=== PATIENT | male | born 1980 | race Caucasian/White ===

== ENCOUNTER 2016-08-16 05:33 | Emergency (ER) | payer MEDICAID ==
[~2016-08-16] VITALS: Ht 175.3 cm; Wt 88.0 kg
[2016-08-16 05:34] VITALS: BP 122/62; PULSE 84; RESP 16; TEMP 97.7; O2SAT 99
[2016-08-16] MEDS ORDERED: AMOX500T PO (05:49)
--- NOTE | 2016-08-16 05:55 | PD ---
HPI Chief Complaint: ENT Complaint Time Seen by Provider: 05:49 Travel History International Travel<30 days: No Contact w/Intl Traveler<30days: No Traveled to known affect area: No History of Present Illness HPI 35-year-old white male presents to the emergency department with a one-to two- day history of sore throat, subjective fever, congestion and cough. He denies any shortness of breath or wheezing. No nausea vomiting. No bowel pain or diarrhea. PFSH Past Medical History Medical History: Denies Significant Hx Tetanus Vaccination: < 5 Years Past Surgical History Surgical History: No Previous Surgery Social History Alcohol Use: No Tobacco Use: Yes Allergies-Medications (Allergen,Severity, Reaction): Coded Allergies: No Known Allergies (Unverified , 08/16/16) Reported Meds & Prescriptions Reported Meds & Active Scripts Active Amoxicillin 500 Mg Tab 1,000 Mg PO BID Review of Systems Except as stated in HPI: all other systems reviewed are Neg Physical Exam Narrative GENERAL: Well-developed, well-nourished in no acute distress. Nontoxic appearing. HEAD: Normocephalic, atraumatic. EYES: Pupils equal round and reactive. Extraocular motions intact. No scleral icterus. No injection or drainage. ENT: TMs clear without erythema. The external auditory canals clear. Nose: clear . Posterior pharynx is erythematous and moist. Positive tonsillar edema but no. Uvula midline. Airway patent. NECK: Trachea midline.Supple, nontender, moves head freely. No central bony tenderness or spasm. CARDIOVASCULAR: Regular rate and rhythm without murmurs, gallops, or rubs. RESPIRATORY: Clear to auscultation. Breath sounds equal bilaterally. No wheezes , rales, or rhonchi. GASTROINTESTINAL: Abdomen soft, non-tender, nondistended. No hepato-splenomegaly , or palpable masses. No guarding. EXTREMITIES: No clubbing, cyanosis, or edema. No joint tenderness, effusion, or edema noted. BACK: Nontender without deformity or crepitance. No flank tenderness. Data Data Last Documented VS Vital Signs Date Time Temp Pulse Resp B/P Pulse Ox O2 Delivery O2 Flow Rate FiO2 08/16/16 05:34 97.7 84 16 122/62 99 Orders Group A Rapid Strep Screen (08/16/16 05:39) Amoxicillin (Trimox) (08/16/16 06:00) Ibuprofen (Motrin) (08/16/16 06:00) MDM Medical Decision Making Medical Screen Exam Complete: Yes Emergency Medical Condition: Yes Medical Record Reviewed: Yes Differential Diagnosis MDM: High Differential diagnoses: Strep throat, viral pharyngitis, mono, peritonsillar abscess, retropharyngeal abscess, Winston's angina Narrative Course Patient's exam is consistent with strep throat. Patient given amoxicillin 500 mg. Diagnosis Primary Impression: Acute pharyngitis Qualified Code: J02.9 - Acute pharyngitis, unspecified etiology Patient Instructions: General Instructions Departure Forms: Tests/Procedures, Work Release Special Instructions: No work 2-3 days. Additional Instructions: Rest. Force fluids. Saltwater gargles. Tylenol and Advil. Chloraseptic [place] Cepastat lozenge. Amoxicillin. Follow-up with a primary care doctor in one week. Return to the ER if any problems. Med/Other Pt SpecificInfo: Prescription(s) given Scripts Amoxicillin 500 Mg Tab1,000 Mg PO BID #40 TAB Prov:Dorita Bryan MD 08/16/16 Disposition: 01 DISCHARGE HOME Condition: Stable Ryan Boucher Aug 16, 2016 05:55
[2016-08-16] MEDS ORDERED: AMOXICILLIN (TRIHYDRATE) 500 MG CAP PO ONE (06:00)
[2016-08-16] MEDS ORDERED: IBUPROFEN 600 MG TAB PO ONE (06:00)
== END 2016-08-16 06:58 | disposition home or self-care (01) ==
LOC: NEPB 05:33
DX: J02.9 Acute pharyngitis, unspecified (principal); R05 Cough; Z72.0 Tobacco use
CPT/HCPCS: 87081; 87880; 99283

== ENCOUNTER 2017-03-20 23:11 | Emergency (ER) | payer MEDICAID ==
[~2017-03-20] VITALS: Ht 175.3 cm; Wt 93.0 kg
[~2017-03-20 23:11] MED LIST: AMOX500T PO
[2017-03-20 23:15] VITALS: BP 121/74; PULSE 96; RESP 16; TEMP 98.1; O2SAT 96
--- NOTE | 2017-03-21 00:10 | PD ---
HPI Chief Complaint: Skin Problem Time Seen by Provider: 00:00 Travel History International Travel<30 days: No Contact w/Intl Traveler<30days: No Traveled to known affect area: No History of Present Illness HPI This is a 36-year-old male who presents with multiple somatic complaints. Initially the chief complaint was an area of skin redness on the right hand which she first noticed today. He has been picking at it all day because it is itchy. During the course of the examination the patient also endorses intermittent chest pain, shortness of breath for 6 months as well as "hives" for 6 months. He describes the hives is raised red areas on his skin which come and go. He is not currently experiencing this. He reports that it happens about twice a month. He also reports fatigue. He has no significant past medical history. Denies recent travel, recent surgery, history of DVT or PE. Endorses tobacco use. No other complaints. PFSH Past Medical History Medical History: Denies Significant Hx Diminished Hearing: No Tetanus Vaccination: < 5 Years Influenza Vaccination: No Past Surgical History Surgical History: No Previous Surgery Social History Alcohol Use: No Tobacco Use: Yes Substance Use: No Allergies-Medications (Allergen,Severity, Reaction): Coded Allergies: No Known Allergies (Unverified , 03/21/17) Reported Meds & Prescriptions Reported Meds & Active Scripts Active No Active Prescriptions or Reported Medications Review of Systems Except as stated in HPI: all other systems reviewed are Neg Physical Exam Narrative GENERAL: Well-developed well-nourished male in no acute distress SKIN: Warm and dry. There is a small Area of ecchymosis to the dorsal right hand interdigital webspace between the first and second digits. There is no generalized rash. HEAD: Atraumatic. Normocephalic. EYES: Pupils equal and round. No scleral icterus. No injection or drainage. ENT: No nasal bleeding or discharge. Mucous membranes pink and moist. NECK: Trachea midline. No JVD. CARDIOVASCULAR: Regular rate and rhythm. No murmur appreciated. RESPIRATORY: No accessory muscle use. Clear to auscultation. Breath sounds equal bilaterally. GASTROINTESTINAL: Abdomen soft, non-tender, nondistended. Hepatic and splenic margins not palpable. MUSCULOSKELETAL: No obvious deformities. No clubbing. No cyanosis. No edema. NEUROLOGICAL: Awake and alert. No obvious cranial nerve deficits. Motor grossly within normal limits. Normal speech. Data Data Last Documented VS Vital Signs Date Time Temp Pulse Resp B/P (MAP) Pulse Ox O2 Delivery O2 Flow Rate FiO2 03/20/17 23:15 98.1 96 16 121/74 (90) 96 Room Air Orders Orders Electrocardiogram (03/21/17 00:03) Ckmb (Isoenzyme) Profile (03/21/17 00:03) Complete Blood Count With Diff (03/21/17 00:03) Comprehensive Metabolic Panel (03/21/17 00:03) D-Dimer (03/21/17 00:03) Troponin I (03/21/17 00:03) Chest, Single Ap (03/21/17 00:03) Iv Access Insert/Monitor (03/21/17 00:03) Ct Pulmonary Angiogram (03/21/17 00:57) CKMB (03/21/17 00:20) CKMB% (03/21/17 00:20) Iohexol 350 Inj (Omnipaque 350 Inj) (03/21/17 01:17) Labs Laboratory Tests Test 03/21/17 00:20 White Blood Count 8.0 TH/MM3 Red Blood Count 4.50 MIL/MM3 Hemoglobin 14.8 GM/DL Hematocrit 42.6 % Mean Corpuscular Volume 94.6 FL Mean Corpuscular Hemoglobin 33.0 PG Mean Corpuscular Hemoglobin Concent 34.8 % Red Cell Distribution Width 12.9 % Platelet Count 206 TH/MM3 Mean Platelet Volume 7.6 FL Neutrophils (%) (Auto) 57.0 % Lymphocytes (%) (Auto) 30.8 % Monocytes (%) (Auto) 8.6 % Eosinophils (%) (Auto) 3.3 % Basophils (%) (Auto) 0.3 % Neutrophils # (Auto) 4.5 TH/MM3 Lymphocytes # (Auto) 2.4 TH/MM3 Monocytes # (Auto) 0.7 TH/MM3 Eosinophils # (Auto) 0.3 TH/MM3 Basophils # (Auto) 0.0 TH/MM3 CBC Comment DIFF FINAL Differential Comment D-Dimer Quantitative (PE/DVT) 1.02 MG/L FEU Blood Urea Nitrogen 20 MG/DL Creatinine 1.40 MG/DL Random Glucose 119 MG/DL Total Protein 7.6 GM/DL Albumin 3.8 GM/DL Calcium Level 8.3 MG/DL Alkaline Phosphatase 115 U/L Aspartate Amino Transf (AST/SGOT) 166 U/L Alanine Aminotransferase (ALT/SGPT) 461 U/L Total Bilirubin 0.4 MG/DL Sodium Level 142 MEQ/L Potassium Level 4.0 MEQ/L Chloride Level 105 MEQ/L Carbon Dioxide Level 27.0 MEQ/L Anion Gap 10 MEQ/L Estimat Glomerular Filtration Rate 58 ML/MIN Total Creatine Kinase 111 U/L Creatine Kinase MB LESS THAN 0.5 NG/ML Troponin I LESS THAN 0.02 NG/ML MDM Medical Decision Making Medical Screen Exam Complete: Yes Emergency Medical Condition: Yes Medical Record Reviewed: Yes Interpretation(s) EKG normal sinus rhythm Differential Diagnosis Anxiety, allergic reaction, pulmonary embolism, acute coronary syndrome, pericarditis, myocarditis, pneumothorax, electrolyte abnormality Narrative Course 36-year-old male presents with an area of skin redness on the right hand which appears to be a small area of ecchymosis secondary to the patient's squeezing and poking at the area. There is no evidence of infectious process, no pain or erythema. During the course of the presentation the patient endorses intermittent hives for 6 months but none currently. He also endorses intermittent fatigue, chest pain or shortness of breath. The patient appears well. He is otherwise healthy 36-year-old male. The plan today would be for basic lab work, d-dimer, EKG, ECG monitoring and pulse oximetry and chest x-ray. Patient's lab work and imaging studies have been reviewed. His d-dimer is mildly elevated and a CT pulmonary angiogram was ordered and was negative. His BUN is 20, creatinine is 1.4, no baseline renal function testing on record. His AST is 166 and his ALT is 461. When discussing liver enzymes with the patient he does endorse a remote history of IV drug abuse and he reports that 1 year ago he developed jaundice after injecting fentanyl. Given his history it was discussed with the patient importance of outpatient hepatitis virus testing for which he verbalizes understanding and agreement. He is stable for discharge. Procedures EKG Prior to Arrival: Yes Diagnosis Primary Impression: Elevated liver enzymes Additional Impression: Ecchymosis Additional Instructions: AST 166, ALT 461 As discussed, your liver enzymes are mildly elevated. Follow-up with primary care physician for outpatient workup for hepatitis. Follow-up with an rampman for further evaluation of the intermittent hives. Any emergent medical conditions. Med/Other Pt SpecificInfo: No Change to Meds Scripts No Active Prescriptions or Reported Meds Disposition: 01 DISCHARGE HOME Condition: Stable Jair Harley Mar 21, 2017 00:10
--- NOTE | 2017-03-21 00:25 | RADRPT ---
EXAM DATE/TIME: 03/21/2017 00:02 [facility] COMPARISON: No previous studies available for comparison. INDICATIONS : Chest pain. MEDICAL HISTORY : None. SURGICAL HISTORY : None. ENCOUNTER: Initial ACUITY: 1 day PAIN SCORE: 3/10 LOCATION: chest Substernal. FINDINGS: Portable AP view of the chest demonstrates a normal-sized cardiac silhouette. No effusion, consolidat ion, or pneumothorax is visualized. The bones and soft tissues demonstrate no acute abnormality. CONCLUSION: No acute cardiopulmonary abnormality is identified. Kwame Alfredo MD on March 21, 2017 at 0:23 Board Certified Radiologist. This report was verified electronically.
[2017-03-21 00:51] LABS: AUTOMATED NEUTROPHIL # 4.5 TH/MM3 (1.8-7.7); BASOPHIL % 0.3 % (0.0-2.0); EOSINOPHIL # 0.3 TH/MM3 (0-0.4); EOSINOPHIL % 3.3 % (0.0-4.0); HEMATOCRIT 42.6 % (39.0-51.0); HEMO FLAGS DIFF FINAL; LYMPH % 30.8 % (9.0-44.0); LYMPHOCYTE # 2.4 TH/MM3 (1.0-4.8); MEAN CELL VOLUME 94.6 FL (80.0-100.0); MEAN CORPUSCULAR HGB CONC 34.8 % (32.0-36.0); MONO % 8.6 % (0.0-8.0); PLATELET COUNT 206 TH/MM3 (150-450); RED CELL DISTRIBUTION WIDTH 12.9 % (11.6-17.2)
[2017-03-21 00:59] LABS: ALKALINE PHOSPHATASE 115 U/L (45-117); ALT (GPT) 461 U/L (12-78); ANION GAP 10 MEQ/L (5-15); AST (GOT) 166 U/L (15-37); BLOOD UREA NITROGEN 20 MG/DL (7-18); CHLORIDE 105 MEQ/L (98-107); CREATINE KINASE 111 U/L (39-308); GLOMERULAR FILTRATION RATE 58 ML/MIN (>89); SODIUM (NA) 142 MEQ/L (136-145); TOTAL BILIRUBIN ADULT 0.4 MG/DL (0.2-1.0)
[2017-03-21 01:12] LABS: CKMB LESS THAN 0.5 NG/ML (0.5-3.6)
[2017-03-21] MEDS ORDERED: IOHEXOL 350 MG/ML 10 ML VIAL (for RAD DIAG) IVCONTRAST ONE (01:17)
--- NOTE | 2017-03-21 01:30 | RADRPT ---
EXAM DATE/TIME: 03/21/2017 01:14 [facility] COMPARISON: No previous studies available for comparison. INDICATIONS : Chest pain and short of breath, evaluate for pulmonary emoblism IV CONTRAST: 69 cc Omnipaque 350 (iohexol) IV RADIATION DOSE: 23.21 CTDIvol (mGy) MEDICAL HISTORY : None SURGICAL HISTORY : None. ENCOUNTER: Initial ACUITY: 4 - 6 months PAIN SCALE: 4/10 LOCATION: chest TECHNIQUE: Volumetric scanning of the chest was performed using a pulmonary embolism protocol MIP images were re constructed. Using automated exposure control and adjustment of the mA and/or kV according to patien t size, radiation dose was kept as low as reasonably achievable to obtain optimal diagnostic quality images. DICOM format image data is available electronically for review and comparison. Follow-up recommendations for detected pulmonary nodules are based at a minimum on nodule size and pa tient risk factors according to Fleischner Society Guidelines. FINDINGS: PULMONARY ARTERIES: No filling defects are seen in the pulmonary arteries through the segmental level. LUNGS: There is no consolidation or pneumothorax . No concerning pulmonary nodule is visualized. PLEURAE: There is no pleural thickening or pleural effusion. MEDIASTINUM: There is good visualization of the great vessels of the middle mediastinum. No evidence of mediastin al or hilar adenopathy/mass. MUSCULOSKELETAL: No acute abnormality. MISCELLANEOUS: The visualized upper abdominal organs demonstrate no acute abnormality. CONCLUSION: 1. No PE is identified. 2. Additionally, no acute finding is identified to explain the clinical symptoms. Kwame Alfredo MD on March 21, 2017 at 1:27 Board Certified Radiologist. This report was verified electronically.
--- NOTE | 2017-03-21 16:40 | EKG ---
Date Performed: 03/21/2017 Time Performed: 00:16:21 PTAGE: 36 years EKG: Sinus rhythm NORMAL ECG NO PREVIOUS TRACING DOCTOR: Donita Diaz Interpretating Date/Time 03/21/2017 16:37:59
== END 2017-03-21 02:17 | disposition home or self-care (01) ==
LOC: NEPD 23:11
DX: R74.8 Abnormal levels of other serum enzymes (principal); S60.221A Contusion of right hand, initial encounter; R53.83 Other fatigue; R06.02 Shortness of breath; R07.9 Chest pain, unspecified; Z72.0 Tobacco use; X58.XXXA Exposure to other specified factors, initial encounter
CPT/HCPCS: 71010; 71275; 80053; 82550; 82552; 84484; 85025; 85379; 93005; 99285; Q9967

== ENCOUNTER 2017-09-02 19:50 | Emergency (ER) | payer SELFPAY ==
[~2017-09-02] VITALS: Ht 176.5 cm; Wt 93.0 kg
[2017-09-02 19:50] VITALS: BP 130/73; PULSE 114; RESP 16; TEMP 98.5; O2SAT 96
[2017-09-02] MEDS ORDERED: METOCLOPRAMIDE HCL 10 MG/2 ML VIAL IV PUSH ONE (20:45)
[2017-09-02] MEDS ORDERED: SODIUM CHLOR 0.9% 1000 ML INJ 1,000 ML IV ONE (20:45)
--- NOTE | 2017-09-02 20:45 | PD ---
HPI Chief Complaint: GI Complaint Time Seen by Provider: 20:25 Travel History International Travel<30 days: No Contact w/Intl Traveler<30days: No Traveled to known affect area: No History of Present Illness HPI 36-year-old male presents emergency department complaining of 2 episodes of nonbloody nonbilious vomiting, preceded by nausea, 1 episode of nonbloody diarrhea and mild "stomach pain" since this morning after eating a 'cold cut sandwich from the [employer]". States that immediately after he ate the sandwich his appetite appetite decreased and he started developing his symptoms. Patient states he has felt feverish but has not actually checked his temperature. He denies alcohol use. States he does smoke. Denies illicit drug use or any other medications. Denies chronic medical issues. [facility] Past Medical History Medical History: Denies Significant Hx Diminished Hearing: No Past Surgical History Surgical History: No Previous Surgery Social History Alcohol Use: No Tobacco Use: Yes (1PPD) Substance Use: No Allergies-Medications (Allergen,Severity, Reaction): Coded Allergies: No Known Allergies (Unverified Adverse Reaction, Unknown, 09/02/17) Reported Meds & Prescriptions Reported Meds & Active Scripts Active No Active Prescriptions or Reported Medications Review of Systems Except as stated in HPI: all other systems reviewed are Neg Physical Exam Narrative GENERAL: Well-nourished no apparent distress, lying comfortable in bed SKIN: Focused skin assessment warm/dry. HEAD: Atraumatic. Normocephalic. EYES: Pupils equal and round. No scleral icterus. No injection or drainage. ENT: No nasal bleeding or discharge. Mucous membranes pink and moist. NECK: Trachea midline. No JVD. CARDIOVASCULAR: Regular rate and rhythm. No murmur appreciated. RESPIRATORY: No accessory muscle use. Clear to auscultation. Breath sounds equal bilaterally. GASTROINTESTINAL: Abdomen soft, non-tender, nondistended. Normoactive bowel sounds MUSCULOSKELETAL: No obvious deformities. No clubbing. No cyanosis. No edema. No CVA tenderness NEUROLOGICAL: Awake and alert. No obvious cranial nerve deficits. Motor grossly within normal limits. Normal speech. PSYCHIATRIC: Appropriate mood and affect; insight and judgment normal. Data Data Last Documented VS Vital Signs Date Time Temp Pulse Resp B/P (MAP) Pulse Ox O2 Delivery O2 Flow Rate FiO2 09/02/17 23:18 09/02/17 19:50 98.5 114 16 96 Room Air Orders Orders Sodium Chlor 0.9% 1000 Ml Inj (Ns 1000 M (09/02/17 20:45) Metoclopramide Inj (Reglan Inj) (09/02/17 20:45) Complete Blood Count With Diff (09/02/17 21:04) Comprehensive Metabolic Panel (09/02/17 21:04) Lipase (09/02/17 21:04) Iv Access Insert/Monitor (09/02/17 21:04) Ecg Monitoring (09/02/17 21:04) Oximetry (09/02/17 21:04) Sodium Chloride 0.9% Flush (Ns Flush) (09/02/17 21:15) Ed Discharge Order (09/02/17 22:36) Labs Laboratory Tests Test 09/02/17 21:11 White Blood Count 10.5 TH/MM3 Red Blood Count 5.09 MIL/MM3 Hemoglobin 17.1 GM/DL Hematocrit 48.0 % Mean Corpuscular Volume 94.4 FL Mean Corpuscular Hemoglobin 33.6 PG Mean Corpuscular Hemoglobin Concent 35.6 % Red Cell Distribution Width 13.0 % Platelet Count 209 TH/MM3 Mean Platelet Volume 8.1 FL Neutrophils (%) (Auto) 77.7 % Lymphocytes (%) (Auto) 13.2 % Monocytes (%) (Auto) 5.8 % Eosinophils (%) (Auto) 2.9 % Basophils (%) (Auto) 0.4 % Neutrophils # (Auto) 8.2 TH/MM3 Lymphocytes # (Auto) 1.4 TH/MM3 Monocytes # (Auto) 0.6 TH/MM3 Eosinophils # (Auto) 0.3 TH/MM3 Basophils # (Auto) 0.0 TH/MM3 CBC Comment DIFF FINAL Differential Comment Blood Urea Nitrogen 22 MG/DL Creatinine 0.94 MG/DL Random Glucose 101 MG/DL Total Protein 8.4 GM/DL Albumin 4.2 GM/DL Calcium Level 9.2 MG/DL Alkaline Phosphatase 69 U/L Aspartate Amino Transf (AST/SGOT) 76 U/L Alanine Aminotransferase (ALT/SGPT) 220 U/L Total Bilirubin 0.9 MG/DL Sodium Level 140 MEQ/L Potassium Level 3.9 MEQ/L Chloride Level 105 MEQ/L Carbon Dioxide Level 25.4 MEQ/L Anion Gap 10 MEQ/L Estimat Glomerular Filtration Rate 92 ML/MIN Lipase 119 U/L [facility] Medical Decision Making Medical Screen Exam Complete: Yes Emergency Medical Condition: Yes Differential Diagnosis GERD, gastritis, nausea with vomiting, viral syndrome Narrative Course 36-year-old male presents emergency department complaining of 2 episodes of nonbloody nonbilious vomiting, preceded by nausea, 1 episode of nonbloody diarrhea and mild "stomach pain" since this morning after eating a cold cut sandwich from " [employer]". States that immediately after he ate the sandwich his appetite appetite decreased and he started developing his symptoms. Patient states he has felt feverish but has not actually checked his temperature. He denies alcohol use. States he does smoke. Denies illicit drug use or any other medications. Denies chronic medical issues. Vital signs stable. Patient requested testing for the flu however, states that he started developing congestion and subjective fever weeks ago. I advised that diagnosis of the flu would not change my treatment plan for him. 1000cc NS IV bolus, Reglan 10 mg administered. His heart rate decreased to the 80s. Patient states he does feel better. Liver enzymes elevated today. Pt says his liver enzymes are chronically elevated. Because patient does not currently feel nauseous and he only complains of a single episode of nausea, I do not discharge patients with medication. Pt understands that he should follow up with a primary care physician within 2- 3 days. Diagnosis Primary Impression: Elevated liver enzymes Additional Impression: Vomiting Qualified Codes: R11.2 - Nausea with vomiting, unspecified Referrals: [facility] Additional Instructions: Follow up with your primary care physician regarding your liver enzymes. Recommend repeating your liver enzymes in 1 week. If your symptoms persist or worsen return to the emergency room. Scripts No Active Prescriptions or Reported Meds Disposition: 01 DISCHARGE HOME Condition: Stable Tracy Bazan Sep 02, 2017 20:45
--- NOTE | 2017-09-02 21:06 | PD ---
Physical Exam Date Seen by Provider: Sep 02, 2017 Time Seen by Provider: 21:04 Narrative 36-year-old male came to the emergency room with history of vomiting 2 since this morning. Patient says his last vomit was a while ago but he came in mainly because he has some abdominal pain. He pointed to his entire abdomen when I asked the location of the pain. No aggravating or relieving factors noticed. No radiation of the pain. Patient says that he has not eaten anything since the morning since he is not hungry at all. No history of diarrhea. He appeared to be in moderate distress. Patient was seen by the PA. When he first arrived in triage his heart rate was in 1 teens. When I went to see him it was in the 90s. Patient is currently getting IV fluid and received Reglan for the nausea. I have ordered some blood test as well. Patient denies any previous abdominal surgeries. This could be a viral illness or beginning of acute appendicitis. Awaiting for the blood test results to make a decision. Data Data Last Documented VS Vital Signs Date Time Temp Pulse Resp B/P (MAP) Pulse Ox O2 Delivery O2 Flow Rate FiO2 09/02/17 23:18 09/02/17 19:50 98.5 114 16 96 Room Air Orders Orders Sodium Chlor 0.9% 1000 Ml Inj (Ns 1000 M (09/02/17 20:45) Metoclopramide Inj (Reglan Inj) (09/02/17 20:45) Complete Blood Count With Diff (09/02/17 21:04) Comprehensive Metabolic Panel (09/02/17 21:04) Lipase (09/02/17 21:04) Iv Access Insert/Monitor (09/02/17 21:04) Ecg Monitoring (09/02/17 21:04) Oximetry (09/02/17 21:04) Sodium Chloride 0.9% Flush (Ns Flush) (09/02/17 21:15) Ed Discharge Order (09/02/17 22:36) Labs Laboratory Tests Test 09/02/17 21:11 White Blood Count 10.5 TH/MM3 Red Blood Count 5.09 MIL/MM3 Hemoglobin 17.1 GM/DL Hematocrit 48.0 % Mean Corpuscular Volume 94.4 FL Mean Corpuscular Hemoglobin 33.6 PG Mean Corpuscular Hemoglobin Concent 35.6 % Red Cell Distribution Width 13.0 % Platelet Count 209 TH/MM3 Mean Platelet Volume 8.1 FL Neutrophils (%) (Auto) 77.7 % Lymphocytes (%) (Auto) 13.2 % Monocytes (%) (Auto) 5.8 % Eosinophils (%) (Auto) 2.9 % Basophils (%) (Auto) 0.4 % Neutrophils # (Auto) 8.2 TH/MM3 Lymphocytes # (Auto) 1.4 TH/MM3 Monocytes # (Auto) 0.6 TH/MM3 Eosinophils # (Auto) 0.3 TH/MM3 Basophils # (Auto) 0.0 TH/MM3 CBC Comment DIFF FINAL Differential Comment Blood Urea Nitrogen 22 MG/DL Creatinine 0.94 MG/DL Random Glucose 101 MG/DL Total Protein 8.4 GM/DL Albumin 4.2 GM/DL Calcium Level 9.2 MG/DL Alkaline Phosphatase 69 U/L Aspartate Amino Transf (AST/SGOT) 76 U/L Alanine Aminotransferase (ALT/SGPT) 220 U/L Total Bilirubin 0.9 MG/DL Sodium Level 140 MEQ/L Potassium Level 3.9 MEQ/L Chloride Level 105 MEQ/L Carbon Dioxide Level 25.4 MEQ/L Anion Gap 10 MEQ/L Estimat Glomerular Filtration Rate 92 ML/MIN Lipase 119 U/L MDM Supervised Visit with JUNITO: Yes Scripts No Active Prescriptions or Reported Meds Condition: Stable Radha Padilla MD Sep 02, 2017 21:06
[2017-09-02] MEDS ORDERED: SODIUM CHLORIDE 0.9% FLUSH 10 ML FLUSH IV FLUSH PRN (21:15)
[2017-09-02 21:46] LABS: AUTOMATED NEUTROPHIL # 8.2 TH/MM3 (1.8-7.7); BASOPHIL % 0.4 % (0.0-2.0); EOSINOPHIL # 0.3 TH/MM3 (0-0.4); EOSINOPHIL % 2.9 % (0.0-4.0); HEMOGLOBIN 17.1 GM/DL (13.0-17.0); LYMPH % 13.2 % (9.0-44.0); LYMPHOCYTE # 1.4 TH/MM3 (1.0-4.8); MEAN CELL VOLUME 94.4 FL (80.0-100.0); MEAN CORPUSCULAR HEMOGLOBIN 33.6 PG (27.0-34.0); MEAN CORPUSCULAR HGB CONC 35.6 % (32.0-36.0); MEAN PLATELET VOLUME 8.1 FL (7.0-11.0); MONO % 5.8 % (0.0-8.0); MONOCYTE # 0.6 TH/MM3 (0-0.9); NEUT % 77.7 % (16.0-70.0); PLATELET COUNT 209 TH/MM3 (150-450); RED BLOOD COUNT 5.09 MIL/MM3 (4.50-5.90); WHITE BLOOD COUNT 10.5 TH/MM3 (4.0-11.0)
[2017-09-02 22:04] LABS: ALBUMIN 4.2 GM/DL (3.4-5.0); ALT (GPT) 220 U/L (12-78); AST (GOT) 76 U/L (15-37); BICARBONATE 25.4 MEQ/L (21.0-32.0); BLOOD UREA NITROGEN 22 MG/DL (7-18); CALCIUM 9.2 MG/DL (8.5-10.1); CHLORIDE 105 MEQ/L (98-107); CREATININE 0.94 MG/DL (0.60-1.30); GLOMERULAR FILTRATION RATE 92 ML/MIN (>89); GLUCOSE,RANDOM 101 MG/DL (74-106); SODIUM (NA) 140 MEQ/L (136-145)
[2017-09-02 22:07] LABS: ALKALINE PHOSPHATASE 69 U/L (45-117); TOTAL BILIRUBIN ADULT 0.9 MG/DL (0.2-1.0); TOTAL PROTEIN 8.4 GM/DL (6.4-8.2)
== END 2017-09-02 23:20 | disposition home or self-care (01) ==
LOC: NEPC 19:50
DX: R11.2 Nausea with vomiting, unspecified (principal); R74.8 Abnormal levels of other serum enzymes; R19.7 Diarrhea, unspecified; R10.9 Unspecified abdominal pain; F17.200 Nicotine dependence, unspecified, uncomplicated
CPT/HCPCS: 80053; 83690; 85025; 96361; 96374; 99284; J2765; J7030

== ENCOUNTER 2017-10-15 10:02 | Emergency (ER) | payer OTHER ==
[~2017-10-15] VITALS: Ht 175.3 cm; Wt 98.0 kg
[2017-10-15 11:14] VITALS: BP 129/69; PULSE 72; RESP 18; TEMP 98; O2SAT 100
[2017-10-15 11:17] VITALS: BP 129/69; PULSE 72; RESP 18; TEMP 98; O2SAT 100
[2017-10-15] MEDS ORDERED: LIDOCAINE 1%/EPINEPHrine 1:100,000 SOLN 20 ML VIAL INFIL ONE (11:30)
[2017-10-15] MEDS ORDERED: TETANUS/DIPHTHERIA TOXOID ADULT 0.5 ML VIAL IM ONE (11:30)
--- NOTE | 2017-10-15 11:55 | PD ---
HPI Chief Complaint: Laceration/Skin Injury Time Seen by Provider: 11:23 Travel History International Travel<30 days: No Contact w/Intl Traveler<30days: No Traveled to known affect area: No History of Present Illness HPI 37-year-old male presents to the emergency room for evaluation of multiple lacerations and puncture wounds after tripping and falling onto a board just prior to arrival. The board had several nail sticking out of it which punctured his left arm at 4 different areas. Patient went to an urgent care clinic to get a tetanus shot but could not afford the copayment so he came here instead. He denies significant pain or bleeding. He has full range of motion of the left upper extremity. Denies paresthesias. No chronic medical conditions or daily medications. PFSH Past Medical History Medical History: Denies Significant Hx Diminished Hearing: No Tetanus Vaccination: > 5 Years Past Surgical History Surgical History: No Previous Surgery Social History Alcohol Use: No Tobacco Use: Yes (1PPD) Substance Use: No Allergies-Medications (Allergen,Severity, Reaction): Coded Allergies: No Known Allergies (Unverified Adverse Reaction, Unknown, 10/15/17) Reported Meds & Prescriptions Reported Meds & Active Scripts Active No Active Prescriptions or Reported Medications Review of Systems Except as stated in HPI: all other systems reviewed are Neg Physical Exam Narrative GENERAL: Well-nourished, well-developed male in no acute distress. Afebrile. Ambulatory. SKIN: Focused skin assessment warm/dry. Multiple superficial abrasions to the left medial upper extremity. There is a 1 cm in diameter deep laceration/ puncture wound to the left anterior shoulder. There is a 1.5 cm superficial laceration over the left antecubital space. All wounds are nonbleeding. HEAD: Normocephalic. EYES: No scleral icterus. No injection or drainage. NECK: Supple, trachea midline. No JVD or lymphadenopathy. CARDIOVASCULAR: Regular rate and rhythm without murmurs, gallops, or rubs. RESPIRATORY: Breath sounds equal bilaterally. No accessory muscle use. MUSCULOSKELETAL: No cyanosis. No edema. No erythema or ecchymosis. Full range of motion of the left upper extremity. 2+ radial pulse. Data Data Last Documented VS Vital Signs Date Time Temp Pulse Resp B/P (MAP) Pulse Ox O2 Delivery O2 Flow Rate FiO2 10/15/17 11:17 98.0 72 18 129/69 (89) 100 Room Air Orders Orders Tetanus/Diphtheria Tox Adult (Tetanus/Di (10/15/17 11:30) Lidocai-Epi 1%-1:100,000 Inj (Xylocaine- (10/15/17 11:30) MDM Medical Decision Making Medical Screen Exam Complete: Yes Emergency Medical Condition: Yes Medical Record Reviewed: Yes Differential Diagnosis Laceration, contusion, abrasion, tetanus prophylaxis Narrative Course 37-year-old male presents to the emergency room for evaluation of 2 lacerations and several superficial abrasions to the left medial forearm that occurred just prior to arrival. Patient tripped and fell forward striking his left arm on a board with several frankie nail sticking out. Tetanus updated in the ER. Physical exam reveals 2 lacerations requiring repair on the left and he will space and left anterior shoulder. There are several superficial abrasions. All are nonbleeding. No surrounding erythema, induration. Wounds were thoroughly cleansed and then repaired, see procedure note for details. The deep laceration was loosely approximated and patient discharged with prescription for Keflex. He understands and agrees to plan. Procedures Procedure Narrative LACERATION LOCATION: Left antecubital space LENGTH: 1.5 cm NUMBER OF STITCHES/TANYA: One simple interrupted REPAIR: The area of the laceration was prepped with Betadine and sterilely draped. The laceration was infiltrated with 1% lidocaine. The wound was copiously irrigated and explored without evidence of foreign body, tendon injury or neurovascular injury. The wound was closed using 5-0 Prolene. This was a single layer repair. A sterile dressing was applied. The patient was advised to keep the dressing clean and dry. Patient tolerated the procedure well. LACERATION LOCATION: Left anterior shoulder LENGTH: 1 cm NUMBER OF STITCHES/TANYA: One simple interrupted REPAIR: The area of the laceration was prepped with Betadine and sterilely draped. The laceration was infiltrated with 1% lidocaine. The wound was copiously irrigated and explored without evidence of foreign body, tendon injury or neurovascular injury. The wound was loosely approximated using 5-0 Prolene. This was a single layer repair. A sterile dressing was applied. The patient was advised to keep the dressing clean and dry. Patient tolerated the procedure well. Diagnosis Primary Impression: Laceration of arm, left, multiple sites Qualified Codes: S41.112A - Laceration without foreign body of left upper arm , initial encounter Referrals: Primary Care Physician Additional Instructions: Keep wounds clean and dry. Apply triple antibiotic ointment daily. Return in 10 days to have sutures removed. Take Keflex as directed, until gone. Follow up with a primary care physician. Return to emergency room for worsening symptoms, as discussed. Scripts No Active Prescriptions or Reported Meds Disposition: 01 DISCHARGE HOME Condition: Stable Lyn Del Angel Oct 15, 2017 11:55
[2017-10-15] MEDS ORDERED: CEPH-460 PO (12:13)
== END 2017-10-15 12:22 | disposition home or self-care (01) ==
LOC: NEPK 10:02
DX: S41.112A Laceration without foreign body of left upper arm, initial encounter (principal); W01.0XXA Fall on same level from slipping, tripping and stumbling without subsequent striking against object, initial encounter; Z23 Encounter for immunization
CPT/HCPCS: 12001; 90471; 90714